=== PATIENT | female | born 1960 | race Caucasian/White ===

== ENCOUNTER 2018-04-13 21:33 | Emergency (ER) | payer OTHER ==
[~2018-04-13] VITALS: Ht 172.7 cm; Wt 59.0 kg
[2018-04-13 21:37] VITALS: BP 157/112
== END 2018-04-13 22:45 ==
LOC: ER 21:33
DX: S50.812A Abrasion of left forearm, initial encounter (principal); S50.811A Abrasion of right forearm, initial encounter; S90.811A Abrasion, right foot, initial encounter; F10.129 Alcohol abuse with intoxication, unspecified; Y90.9 Presence of alcohol in blood, level not specified; W26.8XXA Contact with other sharp object(s), not elsewhere classified, initial encounter; Y93.89 Activity, other specified; Y92.89 Other specified places as the place of occurrence of the external cause; Y99.8 Other external cause status
CPT/HCPCS: 99284

== ENCOUNTER 2021-11-14 14:30 | Emergency (ER) | payer MEDICAID ==
[~2021-11-14] VITALS: Ht 170.2 cm; Wt 77.3 kg
[2021-11-14] MEDS ORDERED: lisinopril 10 MG tablet PO ONE (15:15)
[2021-11-14 15:39] VITALS: BP 173/99
== END 2021-11-14 15:59 | disposition home or self-care (01) ==
LOC: ER 14:31
DX: I10 Essential (primary) hypertension (principal); H54.40 Blindness, one eye, unspecified eye; Z72.89 Other problems related to lifestyle
CPT/HCPCS: 99283

== ENCOUNTER 2021-12-07 12:17 | Emergency (ER) | payer MEDICAID, OTHER ==
[~2021-12-07] VITALS: Ht 171.4 cm; Wt 78.2 kg
[2021-12-07] MEDS ORDERED: thiamine 100mg/ml 2ml inj. IV ONE (12:35)
[2021-12-07] MEDS ORDERED: LORazepam 2 mg/ml vial IV ONE (12:35)
[2021-12-07] MEDS ORDERED: normal saline 1000ML IV soln IV ONE (12:35)
[2021-12-07] MEDS ORDERED: folic acid 1mg/0.2ml inj IV ONE (12:35)
[2021-12-07 12:51] LABS: BASOPHILS # (AUTO) 0.1 X10'3 (0-0.2); EOSINOPHILS # (AUTO) 0.2 X10'3 (0-0.9); EOSINOPHILS % (AUTO) 3.9 % (0-6); HEMATOCRIT 38.3 % (35.0-45.0); HEMOGLOBIN 12.1 g/dl (12.0-16.0); LYMPHOCYTES # (AUTO) 1.8 X10'3 (1.1-4.8); LYMPHOCYTES % (AUTO) 30.7 % (21-51); MEAN CORPUSCULAR HEMOGLOBIN 26.9 PG (27.0-31.0); MEAN CORPUSCULAR HGB CONC 31.7 g/dL (33.0-36.5); MEAN PLATELET VOLUME 7.9 FL (7.4-10.4); MONOCYTES # (AUTO) 0.4 X10'3 (0-0.9); MONOCYTES % (AUTO) 6.9 % (2-12); NEUTROPHILS # (AUTO) 3.3 X10'3 (1.8-7.7); NEUTROPHILS % (AUTO) 57.5 % (42-75); PLATELET COUNT 313 X10'3 (140-440); RED BLOOD COUNT 4.51 X10'6 (4.20-5.60); RED CELL DISTRIBUTION WIDTH 15.2 % (11.5-14.5); WHITE BLOOD COUNT 5.7 X10'3 (4.5-11.0)
[2021-12-07 13:02] LABS: ALANINE AMINOTRANSFERASE 42 U/L (12-78); ALBUMIN 3.5 G/DL (3.4-5.0); ALBUMIN/GLOBULIN RATIO 0.9 (1.1-1.5); ALKALINE PHOSPHATASE 135 IU/L (46-116); ANION GAP 11 (8-16); ASPARTATE AMINO TRANSFERASE 34 U/L (10-37); BILIRUBIN,TOTAL 0.4 MG/DL (0.1-1.0); BLOOD UREA NITROGEN 16 MG/DL (7-18); BUN/CREATININE RATIO 18.8 (6.6-38.0); CHLORIDE 105 MMOL/L (99-107); CREATININE 0.85 MG/DL (0.40-0.90); ETHANOL < 0.010 GM/DL (0.0-0.010); GLUCOSE 100 MG/DL (70-104); POTASSIUM 4.7 MMOL/L (3.5-5.1); SODIUM 139 MMOL/L (135-145); TOTAL CARBON DIOXIDE 22.6 MMOL/L (24-32); TOTAL PROTEIN 7.3 G/DL (6.4-8.2); eGFR 68 ML/MIN
[2021-12-07 14:22] VITALS: BP 178/86
== END 2021-12-07 15:00 | disposition home or self-care (01) ==
LOC: ER 12:17
DX: I10 Essential (primary) hypertension (principal); F10.20 Alcohol dependence, uncomplicated; E86.0 Dehydration; H54.62 Unqualified visual loss, left eye, normal vision right eye; Z72.89 Other problems related to lifestyle; Z86.73 Personal history of transient ischemic attack (TIA), and cerebral infarction without residual deficits; Y90.5 Blood alcohol level of 100-119 mg/100 ml
CPT/HCPCS: 36415; 70450; 80053; 80320; 83735; 85025; 93005; 96361; 96374; 96375; 99285; J2060; J3411; J3490; J7030

== ENCOUNTER 2021-12-14 08:28 | Emergency (ER) | payer MEDICAID, OTHER ==
[~2021-12-14] VITALS: Ht 171.4 cm; Wt 80.7 kg
[2021-12-14 08:39] VITALS: BP 184/83
[2021-12-14] MEDS ORDERED: chlordiazePOXIDE 25mg capsule PO ONE (09:15)
[2021-12-14 09:37] LABS: BASOPHILS % (AUTO) 0.7 % (0-1); EOSINOPHILS # (AUTO) 0.2 X10'3 (0-0.9); HEMATOCRIT 36.8 % (35.0-45.0); HEMOGLOBIN 11.7 g/dl (12.0-16.0); LYMPHOCYTES # (AUTO) 1.5 X10'3 (1.1-4.8); LYMPHOCYTES % (AUTO) 22.1 % (21-51); MEAN CORPUSCULAR HEMOGLOBIN 27.1 PG (27.0-31.0); MEAN CORPUSCULAR HGB CONC 31.7 g/dL (33.0-36.5); MEAN CORPUSCULAR VOLUME 85.5 FL (78-98); MEAN PLATELET VOLUME 8.8 FL (7.4-10.4); MONOCYTES # (AUTO) 0.6 X10'3 (0-0.9); MONOCYTES % (AUTO) 9.4 % (2-12); NEUTROPHILS # (AUTO) 4.3 X10'3 (1.8-7.7); NEUTROPHILS % (AUTO) 64.8 % (42-75); PLATELET COUNT 264 X10'3 (140-440); WHITE BLOOD COUNT 6.7 X10'3 (4.5-11.0)
[2021-12-14] MEDS ORDERED: CHLO25CA10 PO (09:42)
[2021-12-14 09:52] LABS: ALANINE AMINOTRANSFERASE 24 U/L (12-78); ALBUMIN 3.4 G/DL (3.4-5.0); ALBUMIN/GLOBULIN RATIO 0.9 (1.1-1.5); ALKALINE PHOSPHATASE 109 IU/L (46-116); ANION GAP 9 (8-16); ASPARTATE AMINO TRANSFERASE 25 U/L (10-37); BILIRUBIN,TOTAL 0.3 MG/DL (0.1-1.0); BLOOD UREA NITROGEN 15 MG/DL (7-18); CALCIUM 8.5 MG/DL (8.5-10.1); CHLORIDE 109 MMOL/L (99-107); GLUCOSE 109 MG/DL (70-104); POTASSIUM 4.9 MMOL/L (3.5-5.1); SODIUM 144 MMOL/L (135-145); TOTAL CARBON DIOXIDE 26.4 MMOL/L (24-32); TOTAL PROTEIN 7.1 G/DL (6.4-8.2); eGFR 57 ML/MIN
== END 2021-12-14 10:10 | disposition home or self-care (01) ==
LOC: ER 08:29
DX: F10.10 Alcohol abuse, uncomplicated (principal); I10 Essential (primary) hypertension; Y90.9 Presence of alcohol in blood, level not specified; Z79.899 Other long term (current) drug therapy
CPT/HCPCS: 36415; 80053; 85025; 99283

== ENCOUNTER 2022-01-19 08:58 | Emergency (ER) | payer MEDICAID ==
[~2022-01-19] VITALS: Ht 172.7 cm; Wt 76.8 kg
[~2022-01-19 08:58] MED LIST: CHLO25CA10 PO
[2022-01-19 09:24] LABS: BASOPHILS # (AUTO) 0.1 X10'3 (0-0.2); BASOPHILS % (AUTO) 0.9 % (0-1); EOSINOPHILS # (AUTO) 0.2 X10'3 (0-0.9); EOSINOPHILS % (AUTO) 2.8 % (0-6); HEMATOCRIT 37.4 % (35.0-45.0); HEMOGLOBIN 12.1 g/dl (12.0-16.0); LYMPHOCYTES # (AUTO) 1.9 X10'3 (1.1-4.8); LYMPHOCYTES % (AUTO) 32.2 % (21-51); MEAN CORPUSCULAR HEMOGLOBIN 26.3 PG (27.0-31.0); MEAN CORPUSCULAR HGB CONC 32.2 g/dL (33.0-36.5); MEAN CORPUSCULAR VOLUME 81.5 FL (78-98); MEAN PLATELET VOLUME 8.6 FL (7.4-10.4); MONOCYTES # (AUTO) 0.5 X10'3 (0-0.9); MONOCYTES % (AUTO) 8.2 % (2-12); NEUTROPHILS # (AUTO) 3.3 X10'3 (1.8-7.7); NEUTROPHILS % (AUTO) 55.9 % (42-75); PLATELET COUNT 247 X10'3 (140-440); RED BLOOD COUNT 4.59 X10'6 (4.20-5.60); RED CELL DISTRIBUTION WIDTH 14.6 % (11.5-14.5)
[2022-01-19 09:45] LABS: ALANINE AMINOTRANSFERASE 46 U/L (12-78); ALBUMIN 3.5 G/DL (3.4-5.0); ALKALINE PHOSPHATASE 88 IU/L (46-116); ANION GAP 10 (8-16); ASPARTATE AMINO TRANSFERASE 35 U/L (10-37); BILIRUBIN,TOTAL 0.3 MG/DL (0.1-1.0); BLOOD UREA NITROGEN 13 MG/DL (7-18); CALCIUM 8.7 MG/DL (8.5-10.1); CHLORIDE 108 MMOL/L (99-107); GLUCOSE 83 MG/DL (70-104); LIPASE 215 U/L (73-393); POTASSIUM 4.7 MMOL/L (3.5-5.1); SODIUM 143 MMOL/L (135-145); TOTAL CARBON DIOXIDE 25.5 MMOL/L (24-32); TOTAL PROTEIN 6.9 G/DL (6.4-8.2); eGFR 57 ML/MIN
[2022-01-19 09:56] LABS: URINE HCG NEGATIVE (NEG)
[2022-01-19 09:59] LABS: CLARITY,URINE CLEAR (Clear); COLOR,URINE YELLOW (Yellow); GLUCOSE, URINE NEGATIVE (Neg); KETONES,URINE NEGATIVE (Neg); LEUKOCYTE ESTERASE ,URINE NEGATIVE (Neg); NITRITES, URINE NEGATIVE (Neg); OCCULT BLOOD,URINE NEGATIVE (Neg); PH,URINE 5.5 (4.8-8.0); PROTEIN,URINE NEGATIVE (Neg); UROBILINOGEN,URINE 0.2 E.U/dL (0.2-1.0)
[2022-01-19 10:05] LABS: UA COLLECTION TYPE CLN CATCH MIDSTREAM
[2022-01-19 11:42] VITALS: BP 157/67
== END 2022-01-19 11:43 | disposition home or self-care (01) ==
LOC: ER 08:58
DX: K43.9 Ventral hernia without obstruction or gangrene (principal); F10.21 Alcohol dependence, in remission; R11.0 Nausea; I10 Essential (primary) hypertension; F41.9 Anxiety disorder, unspecified; Z72.89 Other problems related to lifestyle; Z79.899 Other long term (current) drug therapy; Y90.9 Presence of alcohol in blood, level not specified
CPT/HCPCS: 36415; 80053; 81003; 81025; 83690; 85025; 99284

== ENCOUNTER 2023-10-09 11:35 | Emergency (ER) | payer MEDICAID ==
[~2023-10-09] VITALS: Ht 172.7 cm; Wt 95.7 kg
[2023-10-09 12:01] VITALS: BP 179/61; PULSE 55; RESP 16; TEMP 98.1; O2SAT 100
[2023-10-09] MEDS: chlordiazePOXIDE 25mg capsule PO ONE (12:54)
== END 2023-10-09 13:00 | disposition home or self-care (01) ==
LOC: ER 11:35
DX: F10.239 Alcohol dependence with withdrawal, unspecified (principal); I10 Essential (primary) hypertension; Z79.899 Other long term (current) drug therapy; Y90.9 Presence of alcohol in blood, level not specified
CPT/HCPCS: 99283

== ENCOUNTER 2023-12-15 17:13 | Inpatient (IN) | payer MEDICAID, OTHER ==
[~2023-12-15] VITALS: Ht 172.7 cm; Wt 100.0 kg
[2023-12-15] MEDS: metoprolol tartrate 50mg tablet PO ONE (18:47)
[2023-12-15] MEDS: lisinopril 10 MG tablet PO ONE (18:48)
[2023-12-15 19:02] LABS: WHITE BLOOD COUNT 5.4 X10'3 (4.5-11.0)
[2023-12-15 19:04] LABS: BASOPHILS # (AUTO) 0.1 X10'3 (0-0.2); BASOPHILS % (AUTO) 1.2 % (0-1); EOSINOPHILS # (AUTO) 0.1 X10'3 (0-0.9); EOSINOPHILS % (AUTO) 2.3 % (0-6); HEMATOCRIT 37.8 % (35.0-45.0); HEMOGLOBIN 12.4 g/dl (12.0-16.0); LYMPHOCYTES # (AUTO) 1.6 X10'3 (1.1-4.8); LYMPHOCYTES % (AUTO) 30.1 % (21-51); MEAN CORPUSCULAR HEMOGLOBIN 27.3 PG (27.0-31.0); MEAN CORPUSCULAR HGB CONC 32.7 g/dL (33.0-36.5); MEAN CORPUSCULAR VOLUME 83.4 FL (78-98); MONOCYTES # (AUTO) 0.5 X10'3 (0-0.9); MONOCYTES % (AUTO) 8.8 % (2-12); NEUTROPHILS # (AUTO) 3.1 X10'3 (1.8-7.7); NEUTROPHILS % (AUTO) 57.6 % (42-75); PLATELET COUNT 237 X10'3 (140-440); RED BLOOD COUNT 4.53 X10'6 (4.20-5.60); RED CELL DISTRIBUTION WIDTH 15.3 % (11.5-14.5)
[2023-12-15 19:22] LABS: ALBUMIN 3.8 G/DL (3.4-5.0); ANION GAP 7 (8-16); BLOOD UREA NITROGEN 14 MG/DL (7-18); BUN/CREATININE RATIO 16.3 (10.0-20.0); CALCIUM 9.2 MG/DL (8.5-10.1); CHLORIDE 106 MMOL/L (99-107); CREATININE 0.86 MG/DL (0.40-0.90); GLUCOSE 98 MG/DL (70-104); POTASSIUM 4.1 MMOL/L (3.5-5.1); PRO BRAIN NATRIURETIC PEPTIDE 826 PG/ML (0-125); SODIUM 140 MMOL/L (135-145); TOTAL CARBON DIOXIDE 27.4 MMOL/L (24-32); eCRCL 69 ML/MIN; eGFR 67 ML/MIN
[2023-12-15] MEDS: magnesium 2GM in 50ml NS 50 ML IV ONE (19:36)
[2023-12-15] MEDS ORDERED: phenobarbital inj 130 MG in normal saline 100ml IV soln 99 ML IV SCH ×2 (20:40→21:10)
[2023-12-15] MEDS: phenobarbital sod 130mg/ml inj. IV ONE ×2 (20:53→21:24)
[2023-12-15 20:55] LABS: PROTHROMBIN TIME 10.8 SECONDS (9.0-12.0)
[2023-12-15] MEDS ORDERED: temazepam 15mg capsule PO PRN (21:00)
[2023-12-15] MEDS: hydrALAZINE 20mg/ml inj. IV ONE (21:13)
[2023-12-15] MEDS ORDERED: diphenhydrAMINE 50 mg/ml inj IV PRN (21:20)
[2023-12-15] MEDS ORDERED: magnesium hydroxide 30ml (MOM) UD suspension PO PRN (21:20)
[2023-12-15] MEDS ORDERED: morphine 2 MG/ML inj. syringe IV PRN ×2 (21:20)
[2023-12-15] MEDS ORDERED: acetaminophen 650mg rectal suppository RC PRN (21:20)
[2023-12-15] MEDS ORDERED: bisacodyl 10mg suppository rectal RC PRN (21:20)
[2023-12-15] MEDS ORDERED: HYDROcodone/acetaminophen 5mg/325mg tablet PO PRN (21:20)
[2023-12-15] MEDS ORDERED: HYDROcodone/acetaminophen 10/325mg tab PO PRN (21:20)
[2023-12-15] MEDS ORDERED: diphenhydrAMINE 25mg capsule PO PRN (21:20)
[2023-12-15] MEDS ORDERED: acetaminophen 325mg tablet PO PRN ×2 (21:20)
[2023-12-15] MEDS ORDERED: mag hydrox/Alum hydrox/simeth 30ml oral suspension PO PRN (21:20)
[2023-12-15] MEDS ORDERED: haloperidol lactate 5mg/ml inj IM PRN (21:25)
[2023-12-15] MEDS ORDERED: dextrose 50%-water 50ml dispensing syringe IV PRN (21:25)
[2023-12-15] MEDS: niCARDipine-NS 40mg/200ml IVPB 200 ML IV SCH (21:25)
[2023-12-15] MEDS ORDERED: haloperidol 5mg tablet PO PRN (21:25)
[2023-12-15] MEDS ORDERED: LORazepam 2 mg/ml vial IV PRN (21:25)
[2023-12-15] MEDS: normal saline 1000ml 1,000 ML IV SCH (21:33)
[2023-12-15 21:49] LABS: BILIRUBIN,URINE NEGATIVE (Neg); CLARITY,URINE CLEAR (Clear); COLOR,URINE YELLOW (Yellow); GLUCOSE, URINE NEGATIVE (Neg); KETONES,URINE NEGATIVE (Neg); LEUKOCYTE ESTERASE ,URINE NEGATIVE (Neg); NITRITES, URINE NEGATIVE (Neg); OCCULT BLOOD,URINE NEGATIVE (Neg); PROTEIN,URINE NEGATIVE (Neg); UA COLLECTION TYPE CLN CATCH MIDSTREAM; UROBILINOGEN,URINE 0.2 E.U/dL (0.2-1.0)
[2023-12-15 22:02] LABS: URINE AMPHETAMINE SCREEN NEGATIVE (Neg); URINE BARBITUATE SCREEN NEGATIVE (Neg); URINE BENZODIAZEPINES SCREEN POSITIVE (Neg); URINE CANNABINOID SCREEN NEGATIVE (Neg); URINE COCAINE SCREEN NEGATIVE (Neg); URINE METHADONE SCREEN NEGATIVE (Neg); URINE PHENCYCLIDINE SCREEN NEGATIVE (Neg)
[2023-12-15 22:03] LABS: HEMOGLOBIN A1C 5.6 % (4.5-6.2)
[2023-12-15 22:11] LABS: CREATINE KINASE 161 U/L (26-192); ETHANOL < 10 MG/DL (<10); LIPASE 56 U/L (16-77); PHOSPHORUS 4.3 MG/DL (2.3-4.5); THYROID STIMULATING HORMONE 0.87 ulU/ml (0.34-4.50)
[2023-12-15] MEDS: ondansetron/PF 4mg/2ml inj IV PRN (22:36)
[2023-12-16 01:21] LABS: BASOPHILS % (AUTO) 0.6 % (0-1); EOSINOPHILS # (AUTO) 0.1 X10'3 (0-0.9); EOSINOPHILS % (AUTO) 2.2 % (0-6); HEMATOCRIT 34.8 % (35.0-45.0); HEMOGLOBIN 11.4 g/dl (12.0-16.0); LYMPHOCYTES # (AUTO) 1.1 X10'3 (1.1-4.8); LYMPHOCYTES % (AUTO) 19.6 % (21-51); MEAN CORPUSCULAR HEMOGLOBIN 27.2 PG (27.0-31.0); MEAN CORPUSCULAR HGB CONC 32.9 g/dL (33.0-36.5); MEAN CORPUSCULAR VOLUME 82.8 FL (78-98); MEAN PLATELET VOLUME 8.3 FL (7.4-10.4); MONOCYTES # (AUTO) 0.5 X10'3 (0-0.9); MONOCYTES % (AUTO) 7.9 % (2-12); NEUTROPHILS # (AUTO) 4.1 X10'3 (1.8-7.7); NEUTROPHILS % (AUTO) 69.7 % (42-75); PLATELET COUNT 231 X10'3 (140-440); RED BLOOD COUNT 4.21 X10'6 (4.20-5.60); RED CELL DISTRIBUTION WIDTH 15.3 % (11.5-14.5); WHITE BLOOD COUNT 5.9 X10'3 (4.5-11.0)
[2023-12-16 01:40] LABS: ALANINE AMINOTRANSFERASE 19 U/L (12-78); ALBUMIN 3.4 G/DL (3.4-5.0); ALKALINE PHOSPHATASE 102 IU/L (46-116); ANION GAP 6 (8-16); ASPARTATE AMINO TRANSFERASE 20 U/L (10-37); BILIRUBIN,TOTAL 0.4 MG/DL (0.1-1.0); BLOOD UREA NITROGEN 14 MG/DL (7-18); BUN/CREATININE RATIO 16.1 (10.0-20.0); CALCIUM 8.7 MG/DL (8.5-10.1); CHLORIDE 106 MMOL/L (99-107); CHOLESTEROL 212 MG/DL (0-200); CREATININE 0.87 MG/DL (0.40-0.90); GLUCOSE 103 MG/DL (70-104); HDL CHOLESTEROL 106 MG/DL (35-60); LDL CHOLESTEROL 83 MG/DL (50-100); POTASSIUM 3.9 MMOL/L (3.5-5.1); SODIUM 140 MMOL/L (135-145); TOTAL CARBON DIOXIDE 28.1 MMOL/L (24-32); TOTAL PROTEIN 6.8 G/DL (6.4-8.2); TRIGLYCERIDES 56 MG/DL (20-135); eCRCL 69 ML/MIN; eGFR 66 ML/MIN
[2023-12-16] MEDS ORDERED: phenobarbital inj 130 MG in normal saline 100ml IV soln 99 ML IV SCH (08:00)
[2023-12-16 08:11] VITALS: BP 144/77; PULSE 68; RESP 16; TEMP 98.2; O2SAT 99
[2023-12-16] MEDS ORDERED: NALT50TA PO (08:24)
[2023-12-16] MEDS ORDERED: LISI40TA13 PO (08:24)
[2023-12-16] MEDS ORDERED: METO25TA6 PO (08:24)
[2023-12-16] MEDS ORDERED: FLUT16SP2 BOTHNARES (08:24)
[2023-12-16] MEDS ORDERED: OLAN2.5T28 PO (08:24)
[2023-12-16 08:30] VITALS: RESP 16; O2SAT 98
[2023-12-16] MEDS: thiamine 100mg/ml 2ml inj. IV SCH (09:41)
[2023-12-16] MEDS: folic acid 1mg/0.2ml inj IV SCH (09:41)
[2023-12-16] MEDS: LORazepam 1 MG tablet PO PRN (09:41)
[2023-12-16] MEDS: pantoprazole 40mg Tablet.DR PO SCH (09:41)
[2023-12-16] MEDS: docusate sod 100mg capsule PO SCH (09:42)
[2023-12-16] MEDS: heparin, porcine 5000 units/ml vial SQ SCH (09:42)
[2023-12-16] MEDS ORDERED: fluticasone nasal spray 16GM bottle NS PRN (10:35)
[2023-12-16] MEDS ORDERED: OLANZapine 2.5MG tablet PO PRN (10:35)
[2023-12-16 11:18] VITALS: BP 148/66; PULSE 72; RESP 16; TEMP 97.9; O2SAT 94
[2023-12-16] MEDS: lisinopril 20mg tablet PO SCH (11:20)
[2023-12-16] MEDS: metoprolol tartrate 25mg tablet PO SCH (11:20)
[2023-12-16] MEDS ORDERED: FOLI0.4T6 PO (14:29)
[2023-12-16] MEDS ORDERED: THIA100T66 PO (14:29)
[2023-12-16] MEDS ORDERED: PANT-47 PO (14:29)
[2023-12-16 15:15] VITALS: BP 116/60; PULSE 75; RESP 12; TEMP 98; O2SAT 99
[2023-12-16] MEDS ORDERED: metoprolol tartrate 25mg tablet PO SCH (20:00)
[2023-12-17] MEDS ORDERED: lisinopril 20mg tablet PO SCH (08:00)
[2023-12-17] MEDS ORDERED: naltrexone 50mg tablet PO SCH (08:00)
[2023-12-17] MEDS ORDERED: LORazepam 2 mg/ml vial IV PRN (21:25)
[2023-12-19] MEDS ORDERED: LORazepam 2 mg/ml vial IV PRN (21:25)
[2023-12-19] MEDS ORDERED: LORazepam 1 MG tablet PO PRN (21:25)
[2023-12-20] MEDS ORDERED: folic acid 1mg tablet PO SCH (08:00)
[2023-12-20] MEDS ORDERED: thiamine 100mg tablet PO SCH (08:00)
== END 2023-12-16 15:18 | disposition home or self-care (01) | DRG 199 ==
LOC: ER 17:13 → ED HOLD 21:24 → EDBEDREQ 12-16 06:03 → PCU 3S 12-16 07:50
PROVIDERS: ADMIT Family Medicine; ATTEND Family Medicine
DX: I16.1 Hypertensive emergency (principal); I50.32 Chronic diastolic (congestive) heart failure; F10.239 Alcohol dependence with withdrawal, unspecified; I11.0 Hypertensive heart disease with heart failure; Y90.9 Presence of alcohol in blood, level not specified; K29.70 Gastritis, unspecified, without bleeding; F41.9 Anxiety disorder, unspecified; F32.A Depression, unspecified; Z98.84 Bariatric surgery status; Z91.148 Patient's other noncompliance with medication regimen for other reason
CPT/HCPCS: 36415; 71045; 80048; 80053; 80061; 80305; 80320; 81003; 82550; 83036; 83605; 83690; 83735; 83880; 84100; 84443; 84484; 85025; 85610; 87040; 87081; 93005; 93306; 96365; 96375; 99285; G0378; J0360; J1644; J2405; J2560; J3411; J3475; J3490; J7030

== ENCOUNTER 2024-03-29 23:38 | Emergency (ER) | payer MEDICAID ==
[~2024-03-29] VITALS: Ht 172.7 cm; Wt 97.7 kg
[~2024-03-29 23:38] MED LIST changes: -CHLO25CA10 PO; +FLUT16SP2 BOTHNARES; +LISI40TA13 PO; +METO25TA6 PO; +NALT50TA5 PO; +OLAN2.5T28 PO; +PANT-47 PO; +THIA100T66 PO
[2024-03-30 00:36] VITALS: BP 176/84; PULSE 94; RESP 16; TEMP 98.1; O2SAT 99
== END 2024-03-30 00:38 | disposition home or self-care (01) ==
LOC: ER 23:39
DX: S00.11XA Contusion of right eyelid and periocular area, initial encounter (principal); R51.9 Headache, unspecified; I10 Essential (primary) hypertension; F41.9 Anxiety disorder, unspecified; Z79.899 Other long term (current) drug therapy; W19.XXXA Unspecified fall, initial encounter; Y93.89 Activity, other specified; Y92.89 Other specified places as the place of occurrence of the external cause; Y99.8 Other external cause status
CPT/HCPCS: 70450; 99284

== ENCOUNTER 2025-01-14 08:35 | Outpatient (CLI) | payer MEDICAID ==
[~2025-01-14 08:35] MED LIST changes: -OLAN2.5T28 PO; +OLAN2.5T77 PO
== END 2025-01-14 23:59 | disposition home or self-care (01) ==
LOC: RAD 08:35
PROVIDERS: ATTEND Physician Assistant
DX: R56.9 Unspecified convulsions (principal)
CPT/HCPCS: 95816